=== PATIENT | male | born 1985 | race Caucasian/White ===

== ENCOUNTER 2017-01-20 10:18 | Emergency (ER) | payer OTHER | END 2017-01-20 12:15 | disposition home or self-care (01) | LOC: ER 10:18 | DX: L23.9 Allergic contact dermatitis, unspecified cause (principal); J06.9 Acute upper respiratory infection, unspecified; R20.8 Other disturbances of skin sensation; E11.9 Type 2 diabetes mellitus without complications; I10 Essential (primary) hypertension; F17.220 Nicotine dependence, chewing tobacco, uncomplicated; Z79.899 Other long term (current) drug therapy | CPT/HCPCS: 96372; 99283-25 ==